=== PATIENT | female | born 1965 | race Caucasian/White ===

== ENCOUNTER 2020-08-28 09:32 | Outpatient (REF) | payer OTHER, SELFPAY ==
--- NOTE | 2020-08-28 10:00 | MM_ITS ---
EXAMINATION: MM SCREENING DIGITAL BREAST TOMOSYNTHESIS, BILATERAL CLINICAL INFORMATION: Screening. Asymptomatic. History ovarian cancer. The lifetime risk of breast cancer based on the Tyrer-Cuzick Model is 4%. COMPARISON: Mammography: 03/24/2018, 09/22/2016 TECHNIQUE: Digital breast tomosynthesis is performed in both the craniocaudal and mediolateral oblique views along with computer-aided detection (CAD). Synthesized 2D images are generated from the tomosynthesis. Additional right MLO view is provided. FINDINGS: There are scattered areas of fibroglandular density (ACR BI-RADS breast composition Category b). Parenchymal pattern is similar to prior exams. There is no developing density or interval mass or architectural abnormality. Again, there is a biopsy clip marker mid 12:00 left breast. Circumscribed macrolobulated nodule again seen central upper inner left breast mid depth with some stable punctate calcification. There is fine fibronodular parenchymal pattern. No interval dominant nodule or significant changes. A port is seen overlying the posterior upper right axilla and there is a dermal lesion marked with skin marker upper left breast. MM/MM tomosynthesis screening BI IMPRESSION: No significant changes from prior studies. ASSESSMENT: BI-RADS 2: Benign RECOMMENDATION: Routine annual mammography screening. This patient's information was entered into a reminder system with a target due date for their next mammogram.
[2020-08-28 10:07] LABS: MANUAL DIFF FLAG NO
[2020-08-28 10:10] LABS: Basophils Absolute Auto 0.1 X10*3/uL (0.0-0.2); Basophils Percent Auto 1.1 % (0-2); Eosinophils Absolute Auto 0.3 X10*3/uL (0.0-0.4); Eosinophils Percent Auto 3.8 % (0-4); Hematocrit 37.5 % (37-47); Imm Gran Abs Auto 0.02 X10*3/uL (0.00-0.03); Imm Gran Pct Auto 0.2 % (0.0-0.4); Lymphocytes Absolute Auto 1.7 X10*3/uL (1.2-4.9); Lymphocytes Percent Auto 20.5 % (20-40); Mean Corpuscular Hemoglobin 30.6 pg (27.0-33.0); Mean Corpuscular Volume 95.7 fL (80-98); Mean Platelet Volume 11.5 fL (9.4-12.3); Monocytes Absolute Auto 0.8 X10*3/uL (0.1-1.2); Monocytes Percent Auto 9.8 % (2-11); Neutrophils Absolute Auto 5.4 X10*3/uL (2.0-8.3); Neutrophils Percent Auto 64.6 % (45-73); Platelet Count 339 X10*3/uL (160-400); Red Blood Count 3.92 X10*6/uL (4.20-5.50); White Blood Count 8.3 X10*3/uL (4.8-10.8)
[2020-08-28 10:41] LABS: Alanine Aminotransferase 14 U/L (0-31); Albumin Level 4.2 g/dL (3.5-5.0); Alkaline Phosphatase 78 U/L (39-117); Anion Gap 13 (12-20); Aspartate Amino Transferase 16 U/L (5-31); Bilirubin Total 0.5 mg/dL (0.0-1.0); Blood Urea Nitrogen 13 mg/dL (9-16); Calcium 9.1 mg/dL (8.4-10.2); Carbon Dioxide 27 mmol/L (22-29); Chloride 108 mmol/L (96-108); Cholesterol 178 mg/dL; Estimated Glomerular Filt Rate > 60; Glucose Random 98 mg/dL (60-115); HDL Cholesterol 54 mg/dL; LDL Cholesterol Calculated 98 mg/dl; Potassium 4.1 mmol/l (3.3-5.1); Sodium 144 mmol/L (135-145); Total Protein 7.3 g/dL (6.5-8.0); Triglycerides 130 mg/dL
== END 2020-08-28 09:33 | disposition home or self-care (01) ==
LOC: HO.MAMMO 09:32
PROVIDERS: PCP Internal Medicine; Visit Provider Internal Medicine
DX: Z00.00 Encounter for general adult medical examination without abnormal findings (principal); F33.42 Major depressive disorder, recurrent, in full remission; Z12.39 Encounter for other screening for malignant neoplasm of breast; Z85.43 Personal history of malignant neoplasm of ovary
CPT/HCPCS: 36415; 77063; 77067; 80053; 80061; 85025

== ENCOUNTER 2022-05-02 08:39 | Outpatient (REF) | payer OTHER, SELFPAY ==
--- NOTE | ~2022-05-02 | MM_ITS ---
EXAMINATION: MM SCREENING DIGITAL BREAST TOMOSYNTHESIS, BILATERAL CLINICAL INFORMATION: Screening. Asymptomatic. The lifetime risk of breast cancer based on the Tyrer-Cuzick Model is 7%. COMPARISON: Mammography: 01/26/2021, 03/24/2018, 09/22/2016 TECHNIQUE: Digital breast tomosynthesis is performed in both the craniocaudal and mediolateral oblique views along with computer-aided detection (CAD). Synthesized 2D images are generated from the tomosynthesis. FINDINGS: There are scattered areas of fibroglandular density (ACR BI-RADS breast composition Category b). Parenchymal pattern is similar to prior studies and there is no developing density or interval architectural abnormality. Left breast again has a smooth mass central breast mid depth similar to prior exams. There is a smaller nodule with overlying biopsy clip marker also noted mid 12:00 left breast. Dermal lesion overlies the posterior upper outer left breast. There are no abnormal calcifications. Portion of a port overlies the posterior right axilla. The axilla are unremarkable. No significant changes. MM/MM tomosynthesis screening BI IMPRESSION: No significant changes from prior studies. ASSESSMENT: BI-RADS 2: Benign RECOMMENDATION: Routine annual mammography screening. This patient's information was entered into a reminder system with a target due date for their next mammogram.
== END 2022-05-02 08:40 | disposition home or self-care (01) ==
LOC: HO.MAMMO 08:39
PROVIDERS: Visit Provider Internal Medicine
DX: Z12.31 Encounter for screening mammogram for malignant neoplasm of breast (principal)
CPT/HCPCS: 77063; 77067

== ENCOUNTER 2022-11-11 09:45 | Outpatient (REF) | payer OTHER, SELFPAY ==
--- NOTE | ~2022-11-11 | XR_ITS ---
EXAMINATION: XR FOOT, RIGHT CLINICAL INFORMATION: Pain of ankle and foot COMPARISON: None available. TECHNIQUE: AP, lateral, and oblique views of the right foot. FINDINGS: No acute fracture or dislocation. Joint spaces are well aligned. Soft tissue swelling is seen throughout the foot, particularly along the plantar aspect. XR/XR foot RT min 3V IMPRESSION: No osseous abnormality. Soft tissue swelling of the foot.
== END 2022-11-11 09:46 | disposition home or self-care (01) ==
LOC: HO.XRAY 09:45
PROVIDERS: PCP Internal Medicine; Visit Provider Internal Medicine
DX: M25.571 Pain in right ankle and joints of right foot (principal)
CPT/HCPCS: 73630

== ENCOUNTER 2023-05-04 08:34 | Outpatient (REF) | payer OTHER, SELFPAY ==
--- NOTE | ~2023-05-04 | MM_ITS ---
EXAMINATION: MM SCREENING DIGITAL BREAST TOMOSYNTHESIS, BILATERAL CLINICAL INFORMATION: Screening. Asymptomatic. COMPARISON: Mammography: 05/02/2022, 08/28/2020, 03/24/2018, 09/22/2016, and dating back to 2013 TECHNIQUE: Digital breast tomosynthesis is performed in both the craniocaudal and mediolateral oblique views along with computer-aided detection (CAD). Synthesized 2D images are generated from the tomosynthesis. FINDINGS: There are scattered areas of fibroglandular density (ACR BI-RADS breast composition Category b). There is a right chest port in place in the right lower axilla. There are bilateral scattered vascular and benign appearing parenchymal calcifications. Stable smooth mass in the central left breast, mid depth, similar to prior exams and benign. Similar nodule with overlying biopsy clip marker also noted mid 12:00 left breast. There are no developing masses, suspicious grouped calcifications, or developing areas of architectural distortion. The parenchymal pattern is unchanged from the prior exams. MM/MM tomosynthesis screening BI IMPRESSION: No mammographic evidence of malignancy. Stable benign findings. ASSESSMENT: BI-RADS BI-RADS 2 - Benign Findings RECOMMENDATION: Routine annual mammography screening. 1 year F/U This examination should not preclude the clinical evaluation of a suspicious palpable abnormality. This patient's information was entered into a reminder system with a target due date for their next mammogram.
== END 2023-05-04 08:35 | disposition home or self-care (01) ==
LOC: HO.MAMMO 08:34
PROVIDERS: PCP Internal Medicine; Visit Provider Internal Medicine
DX: Z12.31 Encounter for screening mammogram for malignant neoplasm of breast (principal)
CPT/HCPCS: 77063; 77067

== ENCOUNTER → 2023-05-04 09:30 | Outpatient (BNV) | payer OTHER, SELFPAY | PROVIDERS: PCP Internal Medicine; Visit Provider Radiology Diagnostic Radiology | DX: Z12.31 Encounter for screening mammogram for malignant neoplasm of breast (principal) | CPT/HCPCS: 77063; 77067 ==

== ENCOUNTER 2024-05-09 08:35 | Outpatient (REF) | payer OTHER, SELFPAY ==
--- NOTE | ~2024-05-09 | MM_ITS ---
EXAMINATION: MM SCREENING DIGITAL BREAST TOMOSYNTHESIS, BILATERAL CLINICAL INFORMATION: Screening. Asymptomatic. COMPARISON: Mammography: Comparison is made with available priors TECHNIQUE: Digital breast mammography with tomosynthesis is performed in both the craniocaudal and mediolateral oblique views along with computer-aided detection (CAD). FINDINGS: There are scattered areas of fibroglandular density (ACR BI-RADS breast composition Category b). Port overlies and obscures the superior posterior portion of the right breast on MLO view. Bilateral scattered circumscribed oval masses which wax and wane consistent with benign fibrocystic changes. Circumscribed oval mass central inner right breast stable from mammogram 2021. Marker clip in the right breast. There are no significant masses, abnormal calcifications, or other abnormalities. MM/MM tomosynthesis screening BI IMPRESSION: No mammographic evidence of malignancy. ASSESSMENT: BI-RADS BI-RADS 2 - Benign Findings RECOMMENDATION: Routine annual mammography screening. 1 year F/U This examination should not preclude the clinical evaluation of a suspicious palpable abnormality. This patient's information was entered into a reminder system with a target due date for their next mammogram. Electronically signed by: Lisa Dowell DO 05/20/2024 09:51 AM EDT
== END 2024-05-09 08:36 | disposition home or self-care (01) ==
LOC: HO.MAMMO 08:35
PROVIDERS: PCP Internal Medicine; Visit Provider Internal Medicine
DX: Z12.31 Encounter for screening mammogram for malignant neoplasm of breast (principal)
CPT/HCPCS: 77063; 77067

== ENCOUNTER → 2024-05-09 09:00 | Outpatient (BNV) | payer OTHER, SELFPAY | PROVIDERS: PCP Internal Medicine; Visit Provider Internal Medicine | DX: Z12.31 Encounter for screening mammogram for malignant neoplasm of breast (principal) | CPT/HCPCS: 77063; 77067 ==

== ENCOUNTER 2025-03-13 08:55 | Outpatient (REF) | payer OTHER, SELFPAY ==
--- OUTSIDE RECORDS SUMMARY | 2025-03-13 09:18 | XMS_ITS | Encounter Summary ---
Author Organization [facility] Address [address] [place] [id number] Care Team Providers Care Corporate Legal Assistant Name Role Phone Unavailable Primary Care Provider Unavailabl e Encounter Details Date Type Department Care Team (Latest Contact Info) Description 06/22/2019 Abstract C CONVERSIONS Dental, Provider, DDS Social History Tobacco Use Types Packs/Day Years Used Date Smoking Tobacco: Never Assessed Comments Unknown Sex and Gender Information Value Date Recorded Sex Assigned at Female 06/02/2022 10:17 AM EDT Legal Sex Female 10:17 AM EDT Gender Identity Female 09/18/2022 2:04 PM EST Sexual Orientation Straight 09/18/2022 2: 04 PM EST documented as of this encounter Plan of Treatment Not on file documented as of this encounter Visit Diagnoses Not on filedocumented in this encounter
--- OUTSIDE RECORDS SUMMARY | 2025-03-13 09:18 | XMS_ITS | Clinical Summary ---
Author Organization [facility] Address [address] [place] [address] Phone Care Team Providers Care Photo Specialist Name Role Phone Daysi Donald MD Primary Care Provider [phone] Allergies No known active allergies Medications Acetaminophen (ACETAMIN PO) Take 975 mg by mouth every 6 (six) hours 3 tablet Active ibuprofen (ADVIL,MOTRIN) 800 MG tablet Take 800 mg by mouth every 8 (eight) hours if needed for mild pain Active magnesium oxide 250 MG tablet Take 250 mg by mouth 1 (one) time each day Active ondansetron (ZOFRAN) 8 MG tablet Take by mouth every 8 (eight) hours if needed for nausea or vomiting Active oxyCODONE-aceta minophen (PERCOCET) 10-325 MG per tablet Take 1 tablet by mouth every 4 (four) hours if needed for moderate pain Active POTASSIUM CHLORIDE PO Take by mouth Acti ve prochlorperazin e (COMPAZINE) 10 MG tablet 01/04/2021 Active Active Problems Problem Noted Date Diagnosed Date Nausea 12/26/2021 Malignant neoplasm of unspecified ovary 12/27/19 22 H/O: ileostomy 12/26/2021 Follow-up status 12/26/2021 Depressive disorder 12/26/2021 Anxiety 12/26/2021 Stage 3a chronic kidney disease 01/07/2021 Hypokalemia 12/28/2020 Acute nontraumatic kidney injury 12/28/2020 Hypomagnesemia 12/28/2020 Immunizations Immunization Administration Dates Next Due Influenza, Unspecified 04/18/2017,05/02/2011 Pneumococcal Polysaccharide 02/12/2011 Social History Tobacco Use Types Packs/Day Years Used Date Smoking Tobacco: Never Assessed Comments Unknown Sex and Gender Information Value Date Recorded Sex Assigned at Not on file Legal Sex Female 9:55 AM EDT Gender Identity Not on file Sexual Orientation Not on file Last Filed Vital Signs Vital Sign Reading Time Taken Comments Blood Pressure - - Pulse - - Temperature - - Respiratory Rate - - Oxygen Saturation - - Inhaled Oxygen Concentration - - Weight 66.2 kg (146 lb) 01/07/2021 12:00 PM EDT Height - - Body Mass Index - - Plan of Treatment Health Maintenance Due Date Last Done Comments Breast Cancer Screening 1967 Hepatitis B Vaccine (1 of 3 - 19+ 3-dose series) 1986 Pneumococcal Vaccine: 50+ Ye ars (2 of 2 - PCV) 02/13/2012 02/12/2011 Colorectal Cancer Screening: Annual FOBT 2016 Colorectal Cancer Screening: Colonoscopy 2016 Colorectal Cancer Screening: Sigmoidoscopy 2016 Influenza Vaccine (#1) 2025 04/18/2017, 2010 Pneumococcal Vaccine: Peds ( 0 to 5 Years) and At-Risk Patients (6 to 49 Years) Discontinued 02/12/2011 Insurance ([id number]) [facility] ([id number]) [place] [phone] Care Teams Photo Specialist Relationship Specialty Start Date End Date Daysi Donald MD [address] [place] [address] PCP - General Internal Medicine 08/03/20
[2025-03-13 09:19] LABS: MANUAL DIFF FLAG NO
[2025-03-13 09:36] LABS: Hematocrit 31.2 % (37.0-47.0); Hemoglobin 10.1 g/dl (12.0-16.0); Imm Gran Abs Auto 0.02 X10*3/uL (0.00-0.03); Imm Gran Pct Auto 0.4 % (0.0-0.4); Lymphocytes Absolute Auto 1.0 X10*3/uL (1.2-4.9); Mean Corpuscular HGB Conc 32.4 g/dl (31.0-35.0); Mean Corpuscular Hemoglobin 29.3 pg (27.0-33.0); Mean Corpuscular Volume 90.4 fL (80.0-98.0); NRBC Abs Auto 0.000 X10*3/uL (0.0-0.012); NRBC Pct Auto 0.0 /100WBC (0.0-0.2); Platelet Count 342 X10*3/uL (160-400); Red Blood Count 3.45 X10*6/uL (4.20-5.50); White Blood Count 4.8 X10*3/uL (4.8-10.8)
[2025-03-13 10:18] LABS: Alanine Aminotransferase 16 U/L (0-31); Albumin Level 3.9 g/dL (3.5-5.0); Alkaline Phosphatase 56 U/L (39-117); Anion Gap 10 (12-20); Aspartate Amino Transferase 20 U/L (5-31); Blood Urea Nitrogen 17 mg/dL (9-16); Calcium 8.5 mg/dL (8.4-10.2); Carbon Dioxide 27 mmol/L (22-29); Chloride 109 mmol/L (96-108); Cholesterol 179 mg/dL (<200); Estimated Glomerular Filt Rate > 60; HDL Cholesterol 36 mg/dL (>40); Potassium 3.7 mmol/L (3.3-5.1); Sodium 142 mmol/L (135-145); Total Protein 6.8 g/dL (6.5-8.0); Triglycerides 174 mg/dL (<150)
== END 2025-03-13 08:56 | disposition home or self-care (01) ==
LOC: HO.LAB 08:55
PROVIDERS: PCP Internal Medicine; Visit Provider Internal Medicine
DX: C56.9 Malignant neoplasm of unspecified ovary (principal); R74.02 Elevation of levels of lactic acid dehydrogenase [LDH]; Z68.33 Body mass index [BMI] 33.0-33.9, adult; Z93.2 Ileostomy status
CPT/HCPCS: 36415; 80053; 80061; 85025

== ENCOUNTER 2025-06-23 11:27 | Outpatient (REF) | payer OTHER, SELFPAY ==
--- NOTE | ~2025-06-23 | MM_ITS ---
EXAMINATION: MM SCREENING DIGITAL BREAST TOMOSYNTHESIS, BILATERAL CLINICAL INFORMATION: Screening. Asymptomatic. COMPARISON: Mammography: Comparison is made with available priors TECHNIQUE: Digital breast mammography with tomosynthesis is performed in both the craniocaudal and mediolateral oblique views along with computer-aided detection (CAD). FINDINGS: There are scattered areas of fibroglandular density. Left: Circumscribed oval mass upper inner breast is 2020 however not significant changed over the past few years. No suspicious calcifications or other abnormal findings. Marker clip. Right: No suspicious calcifications masses or other abnormal findings. Port again seen overlying the posterior superior right breast. MM/MM tomosynthesis screening BI IMPRESSION: Additional imaging is recommended ASSESSMENT: BI-RADS Category 0: Incomplete - Need additional Imaging Evaluation RECOMMENDATION: 1. Additional views of the left breast. 2. Targeted ultrasound if warranted after review of the additional views. 3. Radiology department staff will contact the patient for additional imaging. Additional Imaging required Electronically signed by: Lisa Dowell DO 06/27/2025 09:06 AM [facility] [place]
--- OUTSIDE RECORDS SUMMARY | 2025-06-23 12:18 | XMS_ITS | Data Portability ---
Author Organization [employer] Address [address] [place] [address] Care Team Providers Care Hospital Clerk Name Role Phone HIM CCA OTHER Assessment Encounter Date Assessment Date Assessment LastModified by Organization Details LastModified Time 12/08/2024 12/08/2024 Ms. Phillips is a 59 yo F with Ovarian Cancer who is currently undergoing IV chemo and treatment calling today about ankle swelling. Per patient and medic, c/o bilateral ankle swelling, trouble walking/standing , right foot swelling more than left. No redness or infected looking. c/o pain in both feet 10/10. Right foot feels more n/t at times. No fever/chills/farideh st pain. No recent trauma to the area. No h/o CHF. 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 Is not on AC. Since she just took motrin, will defer toradol. I think it's reasonable to watch and wait. Negative Terry's test - but advised compression, elevation, and icing. Will need US DVT if swelling persists and sx worsen. Risk factors: active cancer. No SOB/CP at this time. Vitals stable. No recent injuries c/f dislocation/fx. Considered albumin or renal dysfunction. But given more sudden onset, less likely. I provided real -time medical direction via phone for this encounter, and was available for additional phone based assistance as needed. I have reviewed and agree with the Assessment and Plan as documented by the Pattern Grader Cutter. We discussed the diagnostic uncertainty of home visits and the risk associated with this. In this case the patient and I felt this to be an acceptable and reasonable amount of risk given the benefit of avoiding an ED visit. The patient given the opportunity to ask questions. Follow up with primary care was recommended, as needed. Advised if develops CP/severe SOB/turning blue/uncontrolle d n/v/d or black/bloody emesis or stool/ AMS/ syncope/ high fever unresponsive to APAP to call 911- verbalized understanding of instruction. [email or web address] Not available 12/08/2024 11:54:09 Plan of Treatment Reminders Order Date Submit Date Provider Last Modified By Organization Details Last Modified Time Details Appointments None record ed. Lab None record ed. Referral None record ed. Procedures None record ed. Surgeries None record ed. Imaging None record ed. Medication Orders None record ed. Patient TargetsNo targets recorded. Patient InstructionsNo instructions recorded. Reason for Referral None Reported. Medical Equipment None Reported. Allergies No known drug allergies Medications Name Sig Start Date Stop Date Status Note LastModified by Organization Details LastModified Time olanzapine 5 mg tablet TAKE 1 TABLET BY MOUTH DAILY AT BEDTIME,INS TR:FOR DAYS 1-3 OF EACH CHEMO CYCLE. active Not Available Not Available No t Available potassium chloride ER 10 mEq tablet,exten ded release TAKE 1 TABLET BY MOUTH TWICE A DAY FOR 1 WEEK HOLD OLANZAPINE WHILE TAKING active Not Available Not Available No t Available prochlorpera zine maleate 10 mg tablet TAKE 1 TABLET BY MOUTH EVERY 6 HOURS NEEDED FOR NAUSEA active Not Available Not Available No t Available lidocaine-pr ilocaine 2.5 %-2.5 % topical cream APPLY TO PORTACATH SITE 30-60MIN PRIOR TO EACH CHEMOTHERAP Y SESSION active Not Available Not Available No t Available magnesium oxide 400 mg (241.3 mg magnesium) tablet TAKE 1 TABLET BY MOUTH TWICE A DAY active Not Available Not Available No t Available ibuprofen 600 mg tablet TAKE 1 TABLET BY MOUTH EVERY 6 HOURS active Not Available Not Available No t Available oxycodone 10 mg tablet TAKE 1 TABLET BY MOUTH TWICE A DAY NEEDED FOR PAIN active Not Available Not Available No t Available diclofenac 1 % topical gel APPLY 2 GRAMS TO THE AFFECTED AREA(S) BY TOPICAL ROUTE 4 TIMES PER DAY active Not Available Not Available No t Available Vitals Date Recorded Respiratory rate Heart rate Oxygen saturation Body temperature Systolic And Diastolic Provider Name and Address Organization Details Last Updated DateTime 5 16 /min 92 /min 96 % 98.3 [degF] 120/70 mm[Hg] Not Available [facility] - production 11:46:07 Social History None recorded. Functional Status None recorded. Mental Status None recorded. Family History Nothing Reported. Medical History No medical history recorded. Gynecological HistoryNo gynecological history recorded. Obstetrics History GPAL:G 0 P 0 0 0 0 Past Encounters Encounter ID Performer Location Encounter Start Date Encounter Closed Date Diagnosis/Indication Diagnosis SNOMED-CT Code Diagnosis ICD10 Code Diagnosis IMO Codes Diagnosis Note [id number] BRINDA BARRAZA MD Main - [address] [address] 12/08/2024 11:40:14 12/08/2024 15:58:57 Swollen ankle region 505771192 M25.471 M25.472 [id number] Health Concerns Section Related Observation LastModified by Organization Detai ls LastModified Time None Recorded Concern Status LastModified by Organization Details LastModified Time None Recorded Advance Directives Directive None Recorded Payers Insurance Date Sequence Insurance Name Policy Number Policy Patel Covered Member ID Patel Member ID Guarantor Name 12/08/2024 1 [facility] - DOS ON OR AFTER 2022 - DUAL ELIGIBLE - JAIL OPTIONS AND ONE CARE (MEDICARE REPLACEMENT/ADV ANTAGE - HMO) Qiana Phillips [id number] Qiana Phillips Notes Date Note Type Note Provider Name and Address Organization Details Recorded Time 12/08/2024 text/html ROS as noted in the [facility] Nurse Triage Notes (Marilee Olmedo - RN): Reason For Request: legs swollen Chief Complaints: Extremity Swelling, Extremity Pain PMH: Cancer PMH Reviewed at 12/08/2024 - 11:03 Allergies Reviewed at 12/08/2024 - 11:03 Pain Assessment: Level 10 out of 10 Comments: 59 y.o female c/o bilateral ankle swelling, trouble walking/standing, right foot swelling more than left. No redness or infected looking. c/o pain in both feet 10/10. Right foot feels more n/t at times. No fever/chills/chest pain. PMH: Cancer, Chemotherapy, IV treatment every Thursday, Ovarian Cancer. I provided information on the mobile health provider response time and advised the patient and/or caregiver to monitor reported signs and symptoms. I discussed the warning signs of when to seek emergency care. .................. .................. .................. .................. .................. .................. .................. ............... Pattern Grader Cutter Note From Chris Matson: Dispatched to the call address for the female pain/swelling in her ankles. Pt states she has had pain and swelling in her right ankle for the last couple of days and this morning her left ankle started hurting. She denies any Hx of CHF, blood thinners or trauma to the area. She advises she took Motrin approx 90 minutes ago. She denies chest pain, diff breathing/sob, n/v/d, fevers or other complaints at this time. Pt was found laying supine in bed, CAOx4, airway open and patent, breathing non labored, able to speak in full sentences, -JVD, -HEENT, skin PWD with good turgor, mucous membranes pink and moist, +CMSx4, -edema, +swelling in right ankle-less so in left ankle, afebrile, abd soft non tender/distended, pupils PERRL, pain Pt was assessed. [facility] consulted.Pt advised that due to her recently taking NSAIDs she was not a good candidate for Ketorolac. Pt advised to rest/elevate/ice her ankle(s) and to follow up with her PCP if it persisted for imaging. Red flags discussed. ALL times are approx. .................. .................. .................. .................. .................. .................. .................. ............... [facility] Consulted: Brinda Barraza .................. .................. .................. .................. .................. .................. .................. ............... Disposition: Fulfilled BRINDA BARRAZA MD [address], [place], [address], LACEY HOWELL 12/08/2024 12:34:33 OBGyn Episode No OBEpisode recorded.
--- OUTSIDE RECORDS SUMMARY | 2025-06-23 12:18 | XMS_ITS | Clinical Summary ---
Author Organization [facility] Address [address] [facility] [address] [place] [phone] Phone Care Team Providers Care Director Personal Name Role Phone Daysi Donald MD Primary Care Provider Rachel Leon MD Unavailable [phone] Allergies No known active allergies Medications oxyCODONE 10 mg TbOr Take 10 mg by mouth. 04/06/2025 Active hydrOXYzine HCL (ATARAX) 10 MG tablet Take 10 mg by mouth 3 (three) times a day. 02/08/2025 Active potassium chloride, bulk, Powd Take by mouth. Active OLANZapine (ZYPREXA) 5 MG tablet 5 mg. 10/14/2024 Active magnesium oxide 250 mg (150 mg elemental) Tab Take 250 mg by mouth. Active prochlorperazin e (COMPAZINE) 10 MG tablet Take 10 mg by mouth every 6 (six) hours as needed. 05/24/2024 Active sertraline (ZOLOFT) 25 MG tablet Take 12.5 mg by mouth daily. Active magnesium oxide (MAG-OX) 400 mg (241.3 mg elemental) tablet Take 2 tablets (800 mg total) by mouth daily. 30 tablet 2 05/11/2025 Active Active Problems Patient Care Coordination No te Formatting of this note migh t be different from the original. Patient has RIJ Port (placed at [facility] in [place] previously) Placement confirmed 03/20/25 via NM PET SCAN - Port a cath tip terminates in right atrium Patient does not have information on when it was placed or power, will try to obtain records for next visit. Problem Noted Date Diagnosed Date Malignant neoplasm of ovary Gout Arthritis Anxiety disorder Encounters Date Type Department Care Team Description 05/11/2025 2:15 PM EDT Office Visit [facility], [facility], [facility] [address] [facility] [place] [address] Liza Garcias MD Malignant neoplasm of ovary, unspecified laterality (Primary Dx) 05/11/2025 1:00 PM EDT - 05/11/2025 11:59 PM EDT Hospital Encounter Department of Radiation Oncology [address] [address] Mayito Bowen MD Discharge Disposition: Home or Self Care 05/11/2025 Orders Only [facility], [facility], [facility] [address] [facility] [address] [place] [address] Min Feliciano MD 04/26/2025 Ancillary Orders DF IMG OUTSIDE IMG [address] [place] [phone] Ani Rodas PA-C 04/26/2025 Ancillary Orders DF IMG OUTSIDE IMG [address] [place] [id number] Ani Rodas PA-C 04/26/2025 Orders Only [facility], [facility] [address] [facility] [place] [address] Min Feliciano MD 04/26/2025 Orders Only [facility], [facility], [facility] [address] [facility], [address] [place] [address] Min Feliciano MD 04/24/2025 1:00 PM EDT Office Visit [facility], [facility] [address] [facility], [address] [place] [address] Min Feliciano MD Malignant neoplasm of ovary, unspecified laterality (Primary Dx) 04/20/2025 Ancillary Orders DF IMG OUTSIDE IMG [address] [place] [address] Min Feliciano MD 04/20/2025 Ancillary Orders DF IMG OUTSIDE IMG [address] [place] [phone] Min Feliciano MD 04/20/2025 Ancillary Orders DF IMG OUTSIDE IMG [address] [place] [phone] Min Feliciano MD 04/20/2025 Ancillary Orders DF IMG OUTSIDE IMG [address] [place] [address] Min Feliciano MD 04/20/2025 Ancillary Orders DF IMG OUTSIDE IMG [address] [place] [id number] Min Feliciano MD 04/20/2025 Ancillary Orders DF IMG OUTSIDE IMG [address] [place] [phone] Min Feliciano MD 04/18/2025 12:05 AM EDT Ancillary Procedure DF IMG OUTSIDE IMG [address] [place] [id number] Ani Rodas PA-C 04/18/2025 Ancillary Procedure DF IMG OUTSIDE IMG [address] [place] [phone] Min Feliciano MD 04/17/2025 2:46 PM EDT - 04/17/2025 11:59 PM EDT Hospital Encounter [facility], [address] [address] Discharge Disposition: Home or Self Care 04/12/2025 Orders Only [facility], [facility], [facility] [address] [place] [address], [address] [place] [address] Min Feliciano MD Gynecologic cancer (Primary Dx) 04/12/2025 Telephone [facility], [facility], [facility] [address] [facility], [address] [place] [address] Mirna Stern, RN Care Coordination 04/12/2025 Patient Outreach [facility], [facility], [facility] [address] [facility], [address] [place] [address] Mirna Stern, RN from Last 3 Months Social History Tobacco Use Types Packs/Day Years Used Date Smoking Tobacco: Never Smokeless Tobacco: Never Tobacco Cessation:Counseling Given: Not Answered Alcohol Use Standard Drinks/Week Comments Never 0 (1 standard drink = 0.6 oz pur e alcohol) Child or Family Care Answer Date Record ed Do you have problems with on e of the following making it difficult for you to work, study, or receive health care? No 04/24/2025 Education Answer Date Recorded Are you interested in help w ith more adult education (for example, completing high school, GED, job training, learning the Martiniquais language, technical skills, or developing parenting skills)? No 04/24/2025 Are you concerned about learning? Not on file 04/24/2025 No 04/24/2025 Yes 04/24/2025 Food Answer Date Recorded Within the past 6 months we worried whether our food would run out before we got money to buy more. Never True 04/24/2025 Within the past 6 months the food we bought just didn't last and we didn't have enough money to get more. Never True Residential Stability Answer Date Recor ded What is your housing situation today? I have sun sing 04/24/2025 How many times have you move d in the past 12 months? Zero (I did not move) 04/24/2025 Paying for Meds Answer Date Recorded Do you have trouble paying for medicines? No 04/24/2025 Paying Utility Bills Answer Date Record ed Do you have trouble paying your heating or elect ricity bill? No 04/24/2025 Transportation Answer Date Recorded Has the lack of transportati on kept you from medical appointments or from getting medications? No 04/24/2025 Digital Access Answer Date Recorded No 04/12/2025 No 04/12/2025 Reliable internet access at home? Not on file 04/12/2025 Device with a working camera? Not on file Comments Unknown Sex and Gender Information Value Date Recorded Sex Assigned at Female 04/11/2025 1:10 PM EDT Legal Sex Female 1:07 PM EDT Gender Identity Female 04/11/2025 1:10 PM EDT Sexual Orientation Straight 04/11/2025 1: 10 PM EDT Last Filed Vital Signs Vital Sign Reading Time Taken Comments Blood Pressure 111/67 05/11/2025 2:28 PM EDT Pulse 94 05/11/2025 2:28 PM EDT Temperature 37.5 C (99.5 F) 05/11/2025 2:27 PM EDT Respiratory Rate 16 05/11/2025 2:25 PM EDT Oxygen Saturation 100% 05/11/2025 2:28 PM EDT Inhaled Oxygen Concentration - - Weight 76.7 kg (169 lb 1.5 oz) 05/11/2025 2:25 P M EDT Height 153.1 cm (5' 0.28 ) 05/11/2025 2:25 PM ED T Body Mass Index 32.72 05/11/2025 2:25 PM EDT Plan of Treatment Health Maintenance Due Date Last Done Comments Adult Td,Tdap Booster 1965 LIPID PANEL 1967 DEPRESSION SCREENING 1979 HEPATITIS C SCREENING 1985 HIV ONE-TIME SCREENING (18-6 5 YEARS) 1985 ZOSTER VACCINES (1 of 2) 1986 PAP SMEAR 1988 SCREENING FOR DIABETES 2002 MAMMOGRAM 2007 PNEUMOCOCCAL VACCINES (50+ years) (2 of 2 - PCV) 02/13/2012 02/12/2011 COLOGUARD 2012 COLONOSCOPY 2012 COLORECTAL CANCER SCREENING 2012 FIT TEST 2012 FOBT 2012 SIGMOIDOSCOPY 2012 VIRTUAL COLONOSCOPY 2012 INFLUENZA VACCINE (#1) 2025 COVID-19 VACCINE (3 - 2024-2 6 season) 2025 09/18/2022, 07/05/2022 RSV VACCINE (1 - 1-dose 75+ series) 2042 SMOKING STATUS SCREENING (On ce After 26 Yrs) Completed 04/12/2025 HEPATITIS A VACCINES Aged Out No long er eligible based on patient's age to complete this topic HIB VACCINES Aged Out No longer eligi ble based on patient's age to complete this topic IPV VACCINES Aged Out No longer eligi ble based on patient's age to complete this topic MENINGOCOCCAL VACCINES (ACWY) Aged Out No longer eligible based on patient's age to complete this topic MENINGOCOCCAL VACCINES (B) Aged Out N o longer eligible based on patient's age to complete this topic Medical Devices Not on file Procedures Procedure Name Priority Date/Time Associated Diagnosis Comments CA-125 Routine 05/11/2025 3:34 PM EDT Malignant neoplasm of both ovaries PTT Routine 05/11/2025 3:34 PM EDT Malignant neoplasm of both ovaries PT-INR Routine 05/11/2025 3:34 PM EDT Malignant neoplasm of both ovaries TYPE AND SCREEN (ABO,RH,ANTIBODY SCREEN) Routine 05/11/2025 3:34 PM EDT Malignant neoplasm of both ovaries MAGNESIUM Routine 05/11/2025 3:34 PM EDT Malignant neoplasm of both ovaries BASIC METABOLIC PANEL (BMP) Routine 05/11/2025 3:34 PM EDT Malignant neoplasm of both ovaries HC BLOOD COUNT COMPLETE AUTO&AUTO DIFRNTL WBC Routine 05/11/2025 3:34 PM EDT Malignant neoplasm of both ovaries MRI PELVIS (BONE) OUTSIDE WITH INTERPRETATION OR CONSULT Routine 04/18/2025 12:05 AM EDT MRI PELVIS (BONE) OUTSIDE (NO INTERPRETATION) Routine 04/18/2025 12:00 AM EDT OUTSIDE IMAGING 04/18/2025 OUTSIDE LAB 04/07/2025 ANATOMIC PATHOLOGY Routine 03/30/2025 12 :00 AM EDT OUTSIDE PATHOLOGY 03/30/2025 from Last 3 Months Results * PTT (05/11/2025 3:34 PM EDT) APTT 25.5 22.7 - 35.9 sec [facility] Blood 05/11/2025 3:34 PM EDT 05/11/2025 3:39 PM EDT us Maytio Bowen MD LAB BLOOD BKR ORDERABLES Final Result Performing Organization Address City/[facility]/ZIP Co de Phone Number [facility] [address] [phone] * PT-INR (05/11/2025 3:34 PM EDT) Pathologist [facility] PT 14.3 12.1 - 14.8 sec [facility] INR 1.1 0.9 - 1.1 [facility] Blood 05/11/2025 3:34 PM EDT 05/11/2025 3:39 PM EDT us Mayito Bowen MD LAB BLOOD BKR ORDERABLES Final Result Performing Organization Address [facility]/ZIP Co de Phone Number [facility] [address] [place] [phone] * (ABNORMAL) CBC and differential (05/11/2025 3:34 PM EDT) WBC 11.63(H) 4.00 - 10.00 K/uL [facility] RBC 3.23(L) 3.90 - 6.00 M/uL [facility] HGB 9.1(L) 11.5 - 16.4 g/dL [facility] HCT 28.5(L) 36.0 - 48.0 % [facility] PLT 421 150 - 450 K/uL [facility] MCV 88.2 80.0 - 100.0 fL [facility] MCH 28.2 27.0 - 32.0 pg [facility] MCHC 31.9(L) 32.0 - 36.0 g/dL [facility] RDW 16.9(H) 11.5 - 14.5 % [facility] MPV 10.5 8.4 - 12.0 fL [facility] NRBC 0.00 0 /100 WBCs [facility] ABSOLUTE NRBC 0.00 0 K/uL [facility] DIFF METHOD Auto [facility] NEUTS 80.4(H) 48.0 - 76.0 % [facility] LYMPHS 11.0(L) 18.0 - 41.0 % [facility] MONOS 6.4 4.0 - 11.0 % [facility] EOS 1.3 0.0 - 5.0 % [facility] BASOS 0.6 0.0 - 1.5 % [facility] % IMMATURE GRANS 0.3 0.0 - 1.0 % [facility] ABSOLUTE NEUTS 9.34(H) 1.92 - 7.60 K/uL [facility] ABSOLUTE LYMPHS 1.28 0.72 - 4.10 K/uL [facility] ABSOLUTE MONOS 0.75 0.16 - 1.10 K/uL [facility] ABSOLUTE EOS 0.15 0.00 - 0.50 K/uL [facility] ABSOLUTE BASOS 0.07 0.00 - 0.15 K/uL [facility] ABS IMMATURE GRANS 0.04 0.00 - 0.10 K/uL [facility] Blood 05/11/2025 3:34 PM EDT 05/11/2025 3:39 PM EDT us Mayito Bowen MD LAB BLOOD BKR ORDERABLES Final Result Performing Organization Address [facility]/ZIP Co de Phone Number [facility] [address] [place] [phone] * Type and Screen (ABO,Rh,Antibody Screen) (05/11/2025 3:34 PM EDT) Expiration Date of Sample 05/14/2025 11:59 PM 05/11/2025 6:28 PM EDT [facility] Resulting Agency [facility] ABO Type O 05/11/2025 6:28 PM EDT [facility] Rh Type Positive 05/11/2025 6:28 PM EDT [facility] Antibody Screen Negative 05/11/2025 6:28 PM EDT [facility] Blood 05/11/2025 3:34 PM EDT 05/11/2025 3:40 PM EDT us Mayito Bowen MD LAB BLOOD BANK TEST ORDERABLES Final Result Performing Organization Address [facility] Co de Phone Number [facility] [address] [place] [phone] * CA-125 (05/11/2025 3:34 PM EDT) CA125 17 6 - 38 U/mL [facility] Comment: CA 125 REFERENCE RANGE: POSTMENOPAUSAL 6-32 U/mL PREMENOPAUSAL 6-46 U/mL Blood 05/11/2025 3:34 PM EDT 05/11/2025 3:39 PM EDT us Mayito Bowen MD LAB BLOOD BKR ORDERABLES Final Result Performing Organization Address City/[facility] Co de Phone Number [facility] [address] [place] [phone] * (ABNORMAL) Magnesium (05/11/2025 3:34 PM EDT) MAGNESIUM 1.0(LL) 1.7 - 2.6 mg/dL [facility] Comment: Critical value: Results called to and read back by: LIZA GARCIAS MD AT 1645 Blood 05/11/2025 3:34 PM EDT 05/11/2025 3:39 PM EDT us Mayito Bowen MD LAB BLOOD BKR ORDERABLES Final Result Performing Organization Address [facility] Co de Phone Number [facility] [address] [place] [phone] * (ABNORMAL) Basic metabolic panel (05/11/2025 3:34 PM EDT) Pathologist [facility] SODIUM 140 136 - 145 mmol/L [facility] CHLORIDE 103 98 - 107 mmol/L [facility] POTASSIUM 3.2(L) 3.4 - 5.1 mmol/L [facility] CO2 23 22 - 31 mmol/L [facility] BUN 18 6 - 23 mg/dL [facility] CREATININE 1.10 0.50 - 1.20 mg/dL [facility] GLUCOSE 162(H) 70 - 100 mg/dL [facility] CALCIUM 9.8 8.8 - 10.7 mg/dL [facility] EGFR 59(L) >59 mL/min/1.7 3m2 [facility] Comment:Estimated glomerular filtration rate calculated using the CKD-EPI refit equation. ANION GAP 14 7 - 17 mmol/L [facility] Blood 05/11/2025 3:34 PM EDT 05/11/2025 3:39 PM EDT us Mayito Bowen MD LAB BLOOD BKR ORDERABLES Final Result Performing Organization Address [facility] Co de Phone Number [facility] [address] [place] [phone] * MRI Pelvis (Bone) Outside With Interpretation Or Consult (04/18/2025 12:05 AM EDT) Other 04/27/2025 10:1 0 AM EDT Impressions [facility] - 04/27/2025 10:27 AM EDT 1. Asymmetric thickening of the left vaginal fornix, corresponding to a site of asymmetric FDG uptake on prior PET, likely represents recurrent malignancy. Narrative [facility] - 04/27/2025 10:27 AM EDT MRI PELVIS (BONE) OUTSIDE WITH INTERPRETATION OR CONSULT Referring clinician's provided indication for this examination in [facility]: MRI Review of the Electronic Medical Record reveals an additional history of: recurrent ovarian cancer TECHNIQUE: Multi-sequence, multi-planar MRI of the pelvis was performed with and without intravenous contrast. COMPARISON: CT ABDOMEN/PELVIS OUTSIDE (NO INTERPRETATION) ; NM PET WHOLE BODY OUTSIDE WITH INTERPRETATION OR CONSULT FINDINGS: Pelvic Organs: There are postsurgical changes of hysterectomy. At the vaginal cuff, there is asymmetric thickening of the left vaginal fornix, which measures 0.8 cm thickness, over a 3.4 cm extent (6:16). This is enhancing on postcontrast imaging (19:113). Bowel: No dilated bowel loops. No ascites in the pelvis. Lymph nodes: No pelvic lymphadenopathy. Vessels: Patent. Bones and Soft Tissues: Ventral abdominal hernia containing nondilated bowel loops, and left lower quadrant parastomal hernia, partially imaged. No focal marrow replacing process. Procedure Note Ana Mullins MD - 04/27/2025 MRI PELVIS (BONE) OUTSIDE WITH INTERPRETATION OR CONSULT Referring clinician's provided indication for this examination in [facility]:MRI Review of the Electronic Medical Record reveals an additional history of:recurrent ovarian cancer TECHNIQUE: Multi-sequence, multi-planar MRI of the pelvis was performedwith and without intravenous contrast. COMPARISON: CT ABDOMEN/PELVIS OUTSIDE (NO INTERPRETATION) ; NMPET WHOLE BODY OUTSIDE WITH INTERPRETATION OR CONSULT FINDINGS: Pelvic Organs: There are postsurgical changes of hysterectomy. At thevaginal cuff, there is asymmetric thickening of the left vaginal fornix,which measures 0.8 cm thickness, over a 3.4 cm extent (6:16). This isenhancing on postcontrast imaging (19:113). Bowel: No dilated bowel loops. No ascites in the pelvis. Lymph nodes: No pelvic lymphadenopathy. Vessels: Patent. Bones and Soft Tissues: Ventral abdominal hernia containing nondilatedbowel loops, and left lower quadrant parastomal hernia, partially imaged.No focal marrow replacing process. IMPRESSION: 1. Asymmetric thickening of the left vaginal fornix, corresponding to asite of asymmetric FDG uptake on prior PET, likely represents recurrentmalignancy. us Ani Rodas PA-C IMG OUTSIDE IMAGING W/ INTERPRETATION Final Result Performing Organization Address City/[facility]/ZIP Co de Phone Number [facility] [address] [address] * Outside Imaging Report Only (04/18/2025) us Scanning Interface Provider IMG XR CHEST Jalyn l Result * MRI Pelvis (Bone) Outside (No Interpretation) (04/18/2025 12:00 AM EDT) Other Narrative [facility] - 04/20/2025 10:36 AM EDT This study is for PACS storage only and not for interpretation. us Min Feliciano MD IMG OUTSIDE IMAGING W/OU T INTERPRETATION Final Result Performing Organization Address [facility] Co de Phone Number [email or web address] * Outside Lab (04/07/2025) us Scanning Interface Provider LAB BLOOD BKR ORDERA BLES Final Result * Outside Pathology (03/30/2025) us Scanning Interface Provider PATHOLOGY ORDERABLES Final Result * Anatomic Pathology (03/30/2025 12:00 AM EDT) Final Diagnosis CONSULT SLIDES FROM [facility], [place], [place] A. VAGINAL APEX MASS, BIOPSY ([id number]; 03/30/25): - METASTATIC HIGH GRADE CARCINOMA, see NOTE. 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 Gastric Biopsy HER2 Criteria (used in [id number] and ToGA Trial) 0 No reactivity in any tumor cell 1+ Tumor cell cluster (5 or more tumor cells) with faint or barely perceptible membranous reactivity, irrespective of tumor cells stained 2+ Tumor cell cluster (5 or more tumor cells) with weak to moderate complete basolateral or lateral membranous activity, irrespective of percentage of tumor cell stained 3+ Tumor cell cluster (5 or more tumor cells) with strong, complete basolateral or lateral membranous activity, irrespective of percentage of tumor cells stained The immunoperoxidase, immunofluorescence and in-situ hybridization tests performed at [facility] were developed and their performance characteristics determined by the immunohistochemistry Laboratories in the Department of Pathology at [facility]. They have not been cleared or approved by the U.S. Food and Drug Administration (FDA). The FDA has determined that such clearance or approval is not necessary. [facility] PATHOLOGY Clinical History none provided [facility] PATHOLOGY Tissue Submitted Consult slides. [facility] PATHOLOGY Gross Description Received from [facility], Department of Pathology,[address] [place] [address], are three (3) slides. Three (3) stained slides are labeled [id number] and sublabeled 08/03 , 08/03 and HER2 which correspond to a vaginal apex mass, biopsy obtained on 03/30/25, according to the accompanying pathology report bearing the patient's name and date of . By his/her signature below, the senior physician certifies that he/she personally conducted a microscopic examination ( gross only exam if so stated) of the described specimen(s) and rendered or confirmed the diagnosis(es) related thereto. [facility] PATHOLOGY Procedure Comments ProcSpecimen Accession - [facility] PATHOLOGY Report Accession No: [id number] Date: 1965 Sex: Female [facility] Department of Pathology [address] [place] [address] CLIA License No.: [id number] [employer] Systems Technician: Dr. Marquis Smith MD, PhD Physician: MIN FELICIANO MD Resident: CHERY Waite Pathologist: Benito Mims M.D., Ph.D. PATHOLOGIC DIAGNOSIS: CONSULT SLIDES FROM [facility] [place], [place] A. VAGINAL APEX MASS, BIOPSY ([id number]; 03/30/25): - METASTATIC HIGH GRADE CARCINOMA, see NOTE. 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 Gastric Biopsy HER2 Criteria (used in NAGA-[id number] and ToGA Trial) 0 No reactivity in any tumor cell 1+ Tumor cell cluster (5 or more tumor cells) with faint or barely perceptible membranous reactivity, irrespective of tumor cells stained 2+ Tumor cell cluster (5 or more tumor cells) with weak to moderate complete basolateral or lateral membranous activity, irrespective of percentage of tumor cell stained 3+ Tumor cell cluster (5 or more tumor cells) with strong, complete basolateral or lateral membranous activity, irrespective of percentage of tumor cells stained The immunoperoxidase, immunofluorescence and in-situ hybridization tests performed at [facility] were developed and their performance characteristics determined by the immunohistochemistry Laboratories in the Department of Pathology at [facility]. They have not been cleared or approved by the U.S. Food and Drug Administration (FDA). The FDA has determined that such clearance or approval is not necessary. CLINICAL DATA: History: none provided TISSUE SUBMITTED: Consult slides. GROSS DESCRIPTION: Received from [facility], Department of Pathology,[address] [place] [address], [place] [address], are three (3) slides. Three (3) stained slides are labeled [id number] and sublabeled 08/03 , 08/03 and HER2 which correspond to a vaginal apex mass, biopsy obtained on 03/30/25, according to the accompanying pathology report bearing the patient's name and date of . By his/her signature below, the senior physician certifies that he/she personally conducted a microscopic examination ( gross only exam if so stated) of the described specimen(s) and rendered or confirmed the diagnosis(es) related thereto. Final Diagnosis by Benito Mims M.D., Ph.D., Electronically signed on April at 11:45:29AM [facility] PATHOLOGY Conversion Type (Other) 03/30/2025 04/17/2025 Min Feliciano MD LAB PATHOLOGY ORDERABLES Edited Result - Final [facility] PATHOLOGY from Last 3 Months Insurance MEDICARE [place] [id number] MEDICARE REPLACEMENT MEDICARE REPLACEMENT MEDICARE REPLACEMENT CAMELIA BENÍTEZ [id number] Care Teams Director Personal Relationship Specialty Start Date End Date Daysi Donald MD [address] [place] [address] [place] [address] PCP - General Internal Medicine 04/11/25 Rachel Leon MD [address] [place] [address] 4B_OB/[place] [address] Obstetrics and Gynecology 04/11/25 Additional Source Comments The information contained in this document represents components of the legal health record. It is not the complete legal health record.[facility]
--- OUTSIDE RECORDS SUMMARY | 2025-06-23 12:18 | XMS_ITS | Encounter Summary ---
Author Organization [email or web address] Address [address] [place] [address] Care Team Providers Care Waste And Batting Waste Chopper Name Role Phone Unavailable Primary Care Provider Unavailabl e Reason for Visit * Reason Onset Date Comments appt 12/22/2023 Encounter Details Date Type Department Care Team (Late st Contact Info) Description 12/22/2023 Telephone [facility] [address] [place], [place] [phone] Bryce Gordon DDS [address] [place], [place] [phone] appt Social History Tobacco Use Types Packs/Day Years Used Date Smoking Tobacco: Never Passive Smoke Exposure: Never Smokeless Tobacco: Never Alcohol Use Standard Drinks/Week Comments Never 0 (1 standard drink = 0.6 oz pur e alcohol) Comments Unknown Sex and Gender Information Value Date Recorded Sex Assigned at Female 06/02/2022 10:17 AM EDT Legal Sex Female 10:17 AM EDT Gender Identity Female 09/18/2022 2:04 PM EST Sexual Orientation Straight 09/18/2022 2: 04 PM EST documented as of this encounter Miscellaneous Notes * Telephone Encounter - Cristela Pro - 12/22/2023 10:38 AM EDT Patient states she couldn't come to her last visit because she could not walk. She has been active requested since 09/2023. She is checking in on status of appt. Please reach out to patient for scheduling DR documented in this encounter Plan of Treatment Not on file documented as of this encounter Visit Diagnoses Not on filedocumented in this encounter
--- OUTSIDE RECORDS SUMMARY | 2025-06-23 12:18 | XMS_ITS | Data Portability ---
Author Organization [place] [facility] [place] [facility], [facility] Address [address] [place] [address] Assessment No assessment recorded. Plan of Treatment Reminders Order Date Submit Date Provider Last Modified By Organization Details Last Modified Time Details Appointments None recorded. Lab None recorded. Referral None recorded. Procedures None recorded. Surgeries None recorded. Imaging XR, knee, 4 or more view - rm 209, right knee xray 2023 024 [email or web address] [facility], [address], [place], [address], 4 16:18:41 Medication Orders Voltaren Arthritis Pain 1 % topical gel 2023 024 [id number], [address] [place], [address], 4 11:14:13 Patient TargetsNo targets recorded. Patient InstructionsNo instructions recorded. Reason for Referral None Reported. Results Created Date Observation Date Name Description Value Unit Range Abnormal Flag Note LastModifiedBy Organization Detail LastModifiedTime 01/26/20 24 01/26/2024 XR, knee, 4 or more view http:/ [email or web address] ?Encry pted=s hAaTro YD8dLq bEUv6g %2BXZw aYqtaq 0bqfl% 2Fg9IQ a4ajBk vP9nXo QUaueC m3YtLR FvZlgJ JJ8mAn HZtai3 6h0253 AC0KuY 36EUaX eUC8mr 84%3D INTERFACE [facility] [address], [place], [address], 01/26/2024 10:54:14 01/26/20 24 01/26/2024 XR, knee, 4 or more view [email or web address] ?Encry pted=s hAaTro YD8dLq bEUv6g %2BXZw aYqtaq 0bqfl% 2Fg9IQ a4ajBk vP9nXo QUaueC m3YtLR FvZlgJ JJ8mAn HZtai3 6k3648 AC0KuY 36EUaX eUC8mr 84%3D INTERFACE [employer] [facility] [address], [place], [address], 01/26/2024 10:54:16 Result Notes Documentation Provider Name and Address Organization Details Recorded Time Xr, Knee, 4 Or More View : [email or web address] Encrypted=fqOeEjaKM4bPesL Uv6g%2AWGtdPvuws1duoj%2Fg 8KCp2usWxiD2bStDWdcxNw6Sn GNYqDaqNYD5xWmNSbbh10l174 2GV1GwE41UAwHbFL3ad21%3D Not Available [facility] 01/26/2024 10:5 4:15 Xr, Knee, 4 Or More View : [email or web address] Encrypted=knAsDcvSJ0xCjsW Uv6g%9SHBaxRyeft5qiut%2Fg 4ZOl5saQlwF3kLyGXnhcXl5Vg JPZcYjyHAJ8qAsKZpow99z915 3DT9PlG56ZPzBbNV4ib08%3D Not Available [facility] 01/26/2024 10:5 4:16 Problems Name Problem SNOMED Code Status Onset Date Resolution Date Notes Provider Name and Address Organization Details Recorded Time Pain of right knee joint 781085400537961 Active 2023 NIESHA velasquez [place] - [facility] 10:39:32 Problem Notes None recorded. Procedures Surgical History Date Name Laterality Status Provider Name and Address Organization Details Recorded Time 5 Knee Kenalog 1cc L/R cancelled Huseyin Winters PA-C [address], [place], [address], [facility] 06/12/2025 07:25:41 5 Knee Kenalog 1cc L/R completed Huseyin Winters PA-C [address], [place], [address], [facility] 03/16/2025 07:57:06 5 Knee Kenalog 1cc L/R completed Huseyin Winters PA-C [address] [facility], [place], [address], [facility] 08/29/2024 07:41:14 4 Sports Knee 4&1 completed Huseyin Winters PA-C [address] [facility], [place], [address], [facility] 05/31/2024 07:53:54 4 Sports Knee 4&1 completed Huseyin Winters PA-C [address] [facility], [place], [address], [facility] 01/26/2024 12:22:44 Imaging Results None recorded. Procedure Notes None recorded. Medical Equipment None Reported. Allergies No known drug allergies Medications Name Sig Start Date Stop Date Status Note LastModified by Organization Details LastModified Time Refresh Tears 0.5 % eye drops PLACE 1 DROP INTO BOTH EYES TWICE A DAY active Not Available Not Available Not Available amoxicillin 500 mg capsule TAKE 1 CAPSULE (500 MG) BY MOUTH EVERY 8 HOURS FOR 10 DAYS active Not Available Not Available No t Available olanzapine 5 mg tablet TAKE 1 TABLET BY MOUTH DAILY AT BEDTIME,INS TR:FOR DAYS 1-3 OF EACH CHEMO CYCLE. active Not Available Not Available No t Available potassium chloride ER 10 mEq tablet,exten ded release TAKE 1 TABLET BY MOUTH TWICE A DAY FOR 5 DAYS active Not Available Not Available No t Available metronidazol e 500 mg tablet TAKE 1 TABLET BY MOUTH EVERY 8 HOURS FOR 3 DAYS. active Not Available Not Available No t Available prochlorpera zine maleate 10 mg tablet TAKE 1 TABLET BY MOUTH EVERY 6 HOURS NEEDED FOR NAUSEA active Not Available Not Available No t Available lidocaine-pr ilocaine 2.5 %-2.5 % topical cream APPLY TO [facility] SITE 30-60MIN PRIOR TO EACH CHEMOTHERAP Y SESSION active Not Available Not Available No t Available acetaminophe n ER 650 mg tablet,exten ded release PLEASE SEE ATTACHED FOR DETAILED DIRECTIONS active Not Available Not Available N ot Available magnesium oxide 400 mg (241.3 mg magnesium) tablet TAKE 2 TABLETS BY MOUTH DAILY. active Not Available Not Available No t Available sertraline 25 mg tablet TAKE 1/2 TABLET BY MOUTH EVERY DAY active Not Available Not Available No t Available ibuprofen 600 mg tablet TAKE 1 TABLET BY MOUTH EVERY 6 HOURS active Not Available Not Available No t Available levofloxacin 500 mg tablet TAKE 1 TABLET BY MOUTH EVERY 24 HOURS FOR 2 DAYS. active Not Available Not Available Not Available hydroxyzine HCl 10 mg tablet TAKE 1 TABLET BY MOUTH THREE TIMES A DAY active Not Available Not Available Not Available nitrofuranto in monohydrate/ macrocrystal s 100 mg capsule TAKE 1 CAPSULE BY MOUTH TWICE A DAY FOR 5 DAYS active Not Available Not Available No t Available chlorhexidin e gluconate 0.12 % mouthwash SWISH AND SPIT OUT 15 ML IN THE MOUTH OR THROAT IF NEEDED FOR WOUND CARE FOR UP TO 14 DAYS active Not Available Not Available No t Available oxycodone 10 mg tablet TAKE 1 TABLET BY MOUTH TWICE A DAY NEEDED FOR PAIN active Not Available Not Available No t Available diclofenac 1 % topical gel APPLY 2 GRAMS TO THE AFFECTED AREA(S) BY TOPICAL ROUTE 4 TIMES PER DAY 2023 active Not Available Not Available Not Avai lable Vitals Date Recorded Body height Provider Name an d Address Organization Details Last Updated DateTime 08/29/2024 154.94 cm HARMEET Chirinos [facility] 08/29/2024 09:35:37 Date Recorded Body height Body mass index (BMI) Body weight Provider Name and Address Organization Details Last Updated DateTime 01/26/2024 154.94 cm 32.1 kg/m2 12892.7 g NIESHA Evans [facility] 01/26/2024 10:38:36 Date Recorded Body height Provider Name an d Address Organization Details Last Updated DateTime 03/16/2025 154.94 cm HARMEET RIVERA [facility] 03/16/2025 09:39:32 Date Recorded Body height Provider Name an d Address Organization Details Last Updated DateTime 05/31/2024 154.94 cm HARMEET RIVERA [facility] 05/31/2024 09:39:57 Social History None recorded. Functional Status None recorded. Mental Status None recorded. Family History Nothing Reported. Medical History Condition Response Allergies/Hayfever N Coronary Artery Disease N Anxiety/Depression N Breathing or lung disorders N Emphysema N Nerve Disorders N Thyroid Problems N COPD N Pacemaker N Anemia N Kidney/Bladder Problems N Vascular Disease N Heart Trouble N Heart Attack (NE) N Gastrointestinal Disease N Cholesterol N Diabetes N Autoimmune disease N Bleeding Disorder N Orthotics N Arthritis Y Seizures/Epilepsy N Blood Clot N AIDS/HIV N Congestive Heart Failure (CHF) N Acid Reflux (GERD) N Cancer Y Stroke N Asthma N Circulation Problems N Peripheral Vascular Disease N Sleep Apnea N Hepatitis N Heart Disease N Rheumatoid Arthritis N Arrhythmia N Pulmonary Embolism N Headaches N Fibromyalgia N Hypertension N Osteoporosis N Gynecological HistoryNo gynecological history recorded. Obstetrics History GPAL:G 0 P 0 0 0 0 Past Encounters Encounter ID Performer Location Encounter Start Date Encounter Closed Date Diagnosis/Indication Diagnosis SNOMED-CT Code Diagnosis ICD10 Code Diagnosis IMO Codes Diagnosis Note [id number] [facility] [address] [place] [address] 01/26/2024 10:00:24 02/22/2024 16:18:41 Pain of right knee joint 4788639002 26970 M25.561 Osteoarthr itis of right knee joint 7361306550 82606 M17.11 [id number] Huseyin Winters PA-C [facility] [address] [place] [address] 05/31/2024 09:19:19 06/24/2024 09:40:39 Pain of right knee joint 1278618034 26255 M25.561 [id number] Huseyin Winters PA-C [facility] [address] [place] [address] 08/29/2024 09:04:20 09/07/2024 11:54:33 Chondromalacia of right patella [id number] 0054923 M22.41 [id number] [facility] [address] [place] [address] 03/16/2025 09:23:15 03/24/2025 10:07:29 Osteoarthritis of right knee joint 9755931757 25292 M17.11 [id number] Health Concerns Section Related Observation LastModified by Organization Detai ls LastModified Time None Recorded Concern Status LastModified by Organization Details LastModified Time None Recorded Advance Directives Directive None Recorded Payers Insurance Date Sequence Insurance Name Policy Number Policy Patel Covered Member ID Patel Member ID Guarantor Name 06/12/2025 1 [facility] - DOS ON OR AFTER 2022 - ONE CARE (MEDICARE REPLACEMENT/ADV ANTAGE - HMO) Qiana Phillips [id number] Qiana Phillips Notes Date Note Type Note Provider Name and Address Organization Details Recorded Time 01/26/2024 text/html I am seeing the patient today under the supervision of Dr. Cooper who was available but who did not see the patient.History:This pleasant woman presents today for a new problem right knee pain. Pain is located about the anterior and anterolateral aspect of the knee. Increased with long-distance walking as well as with stairs. Has been trying Motrin without significant benefit. Forceful injury. Been going on since November.PMH/PSH/MEDS/ALL /FMH/SOC HX/ROS are reviewed in detail per my medical intake sheet.General Exam: Vital signs are as noted belowMental status: Alert and lucid. Normal insight, affect and grooming.BRAZE OPERATOR: Gross motor coordination is intact. No spasticity or clonus noted.Extremities:Calv es are soft non tender, skin intact.Orthopedic Examination:Patient has a negative straight leg raise bilaterally.Right Hip: [ ] Hip exam shows no tenderness to palpation. There is full range of motion throughout all planes without irritability. There is full muscle strength. There is negative straight leg raise. Negative for signs of impingement.Left Hip: [ ] Hip exam shows no tenderness to palpation. There is full range of motion throughout all planes without irritability. There is full muscle strength. There is negative straight leg raise. Negative for signs of impingement.Right Knee: Tenderness to palpation of the medial hamstring area as well as borders of the patella. No effusion, erythema. No laxity. Full range of motion. Full muscle strength.Left Knee: ROM is full, stability intact both anterior, posterior, and varus/valgus stress at both 0 and 30 degrees of flexion. No meniscal tenderness. Negative Jailene's maneuver. No crepitus,no effusion, 5/5 strength.Full strength and sensation distally.X-rays: Radiographs 4 views were obtained standing office of the right knee including a standing AP, Medina view, nonweightbearing lateral views, and merchant view. These radiographs demonstrate Slight spurring off the lateral border of the patella with a small ossicle in this above-noted area.Assessment:Chondr omalacia patella right kneePLAN:Recommended intra-articular cortisone injection. After the risks and benefits in obtaining verbal consent patient's right knee was injected with 1 cc of Kenalog 40 mg/cc or cc of Marcaine and 1%. Tolerated this procedure well. Postinjection precautions reviewed. Follow up with us as needed. I have also recommended a course of physical therapy for for patellofemoral [facility] speech recognition director of catering software was used to create portions of this document. An attempt at proofreading has been made to minimize errors. Please call for corrections. Huseyin Winters PA-C [address] [place] [address] [address], [place], [address], [facility] - [facility] 01/26/2024 12:23:09 05/31/2024 text/html I am seeing the patient today under the supervision of who was available but who did not see the patient. Chief Complaint The patient presents today for recheck of right knee osteoarthritis. Is known to have knee arthritis treated conservatively to this point with 3 months relief of symptoms. Presents today for recheck secondary to increased knee pain. Past Medical/Surgical History Reviewed today, otherwise unchanged per intake sheet. Physical Findings General Appearance: Well developed. In no acute distress. Musculoskeletal System: Knee: General/bilateral: No laxity of the knee. Right Knee: Medial aspect was tender on palpation. No erythema. No warmth. Left Knee: Medial aspect was tender on palpation. No erythema. No warmth. Musculoskeletal Scales: General/bilateral: Mild effusion noted. Neurological: Oriented to time, place, and person. Gait And Stance: Normal. Psychiatric: Mood was appropriate to the affect. Left knee 0-120 degrees of flexion with discomfort. Assessment Osteoarthritis of knee - Plan More than 50% of todays visit was spent on direct patient counseling regarding their knee condition and treatment options both operative with knee arthroplasty and non-operative, including oral medications and injection therapy. After discussion, my clinical decision was to go forth with an intra-articular cortisone injection. After explaining risks and benefits, under meticulous aseptic technique, the knee was injected with, 1cc of Kenalog 40mgs and 4 cc of Marcaine 1/4%. They tolerated the procedures well. Post injection precautions reviewed. Follow up with us in 3 months for further discussion of total knee replacement surgery versus continued conservative treatment. Huseyin Winters PA-C [address] [place] [address] [address], [place], [address], [facility] 05/31/2024 09:51:56 08/29/2024 text/html I am seeing the patient today under the supervision of who was available but who did not see the patient. Chief Complaint The patient presents today for recheck of right knee osteoarthritis. Is known to have knee arthritis treated conservatively to this point with 3 months relief of symptoms. Presents today for recheck secondary to increased knee pain. Past Medical/Surgical History Reviewed today, otherwise unchanged per intake sheet. Physical Findings General Appearance: Well developed. In no acute distress. Musculoskeletal System: Knee: General/bilateral: No laxity of the knee. Right Knee: Medial aspect was tender on palpation. No erythema. No warmth. Left Knee: Medial aspect was tender on palpation. No erythema. No warmth. Musculoskeletal Scales: General/bilateral: Mild effusion noted. Neurological: Oriented to time, place, and person. Gait And Stance: Normal. Psychiatric: Mood was appropriate to the affect. Left knee 0-120 degrees of flexion with discomfort. Assessment Osteoarthritis of knee - Plan More than 50% of todays visit was spent on direct patient counseling regarding their knee condition and treatment options both operative with knee arthroplasty and non-operative, including oral medications and injection therapy. After discussion, my clinical decision was to go forth with an intra-articular cortisone injection. After explaining risks and benefits, under meticulous aseptic technique, the knee was injected with, 1cc of Kenalog 40mgs and 4 cc of Marcaine 1/4%. They tolerated the procedures well. Post injection precautions reviewed. Follow up with us in 3 months for further discussion of total knee replacement surgery versus continued conservative treatment. Huseyin Winters PA-C [address], [place], [address], [place] [facility] 08/29/2024 12:01:12 03/16/2025 text/html I am seeing the patient today under the supervision of who was available but who did not see the patient. Chief Complaint The patient presents today for recheck of right knee osteoarthritis. Is known to have knee arthritis treated conservatively to this point with 3 months relief of symptoms. Presents today for recheck secondary to increased knee pain. Past Medical/Surgical History Reviewed today, otherwise unchanged per intake sheet. Physical Findings General Appearance: Well developed. In no acute distress. Musculoskeletal System: Knee: General/bilateral: No laxity of the knee. Right Knee: Medial aspect was tender on palpation. No erythema. No warmth. Left Knee: Medial aspect was tender on palpation. No erythema. No warmth. Musculoskeletal Scales: General/bilateral: Mild effusion noted. Neurological: Oriented to time, place, and person. Gait And Stance: Normal. Psychiatric: Mood was appropriate to the affect. Left knee 0-120 degrees of flexion with discomfort. Assessment Osteoarthritis of knee - Plan More than 50% of todays visit was spent on direct patient counseling regarding their knee condition and treatment options both operative with knee arthroplasty and non-operative, including oral medications and injection therapy. After discussion, my clinical decision was to go forth with an intra-articular cortisone injection. After explaining risks and benefits, under meticulous aseptic technique, the knee was injected with, 1cc of Kenalog 40mgs and 4 cc of Marcaine 1/4%. They tolerated the procedures well. Post injection precautions reviewed. Follow up with us in 3 months for further discussion of total knee replacement surgery versus continued conservative treatment. Huseyin Winters PA-C [address], [place], [address], [place] [facility] 03/17/2025 07:24:41 OBGyn Episode No OBEpisode recorded.
--- OUTSIDE RECORDS SUMMARY | 2025-06-23 12:18 | XMS_ITS | Clinical Summary ---
Author Organization [employer] Address [address] [facility] 7t [place] [address] Care Team Providers Care Dielectric Press Operator Name Role Phone Unavailable Primary Care Provider Unavailabl e Allergies No known active allergies Medications magnesium oxide (Mag-Ox) 400 MG tablet Take 1 tablet by mouth 2 times daily. 10/20/2022 Active magnesium oxide (Mag-Ox) 250 MG tablet Take 250 mg by mouth. Active sertraline (Zoloft) 25 MG tablet Take by mouth in the morning. Active OLANZapine (ZyPREXA) 5 MG tablet at bedtime. Active oxyCODONE ER (OxyCONTIN) 10 MG 12 hr tablet Do not crush, chew, or split. Active Active Problems Problem Noted Date Diagnosed Date Dental caries 08/25/2023 Immunizations Immunization Administration Dates Next Due Influenza, IIV3, injectable 04/18/2017, 1 Pfizer Covid-19 Vaccine 12+ 09/18/2022 Pneumococcal Polysaccharide PPSV23 02/12/2011 Social History Tobacco Use Types Packs/Day Years Used Date Smoking Tobacco: Never Passive Smoke Exposure: Never Smokeless Tobacco: Never Tobacco Cessation:Counseling Given: No Alcohol Use Standard Drinks/Week Comments Never 0 (1 standard drink = 0.6 oz pur e alcohol) Comments Unknown Sex and Gender Information Value Date Recorded Sex Assigned at Female 06/02/2022 10:17 AM EDT Legal Sex Female 10:17 AM EDT Gender Identity Female 09/18/2022 2:04 PM EST Sexual Orientation Straight 09/18/2022 2: 04 PM EST Last Filed Vital Signs Vital Sign Reading Time Taken Comments Blood Pressure 124/78 01/14/2024 9:20 AM EDT Pulse 70 01/14/2024 9:20 AM EDT Temperature - - Respiratory Rate - - Oxygen Saturation - - Inhaled Oxygen Concentration - - Weight - - Height - - Body Mass Index - - Plan of Treatment Health Maintenance Due Date Last Done Comments CT Colonography 1967 Colonoscopy 1967 Colorectal Cancer Screening 1967 Dental Prophylaxis 1967 Depression Screening 1967 FIT DNA/Cologuard 1967 FIT 1967 FOBT 1967 HIV Screening 1967 SDOH Screening 1967 Sigmoidoscopy 1967 Disability Screening 1967 Alcohol/Substance Use Screening 1979 Hepatitis C Screening 1985 DTaP/Tdap/Td Vaccines (1 - Tdap) 1986 Hepatitis B Vaccines (1 of 3 - 19+ 3-dose series) 1986 Pap Smear 1988 Cervical Cancer Screening 1997 HPV/Cotest 1997 Mammogram 2007 Pneumococcal Vaccine: 50+ Years (2 of 2 - PCV) 2017 02/12/2011 Zoster Vaccines (1 of 2) 2017 Dental Oral Exam 12/22/2019 06/22/2019, 11/03/2013 Dental X-Ray: Bitewings 06/23/2020 06/22/2019, 11/03 Tobacco Screening 01/13/2025 01/14/2024 COVID-19 Vaccine ( - season) 2025 09/18/2022, 07/05/2022 Influenza Vaccine (#1) 2025 04/18/2017, 2010 Dental X-Ray: Full Mouth 08/26/2026 024, 06/22/2019, 03/30/2015, Additional history exists RSV Patients and Patients Aged 60 years or older (1 - 1-dose 75+ series) 2042 HIB Vaccines Aged Out No longer eligi ble based on patient's age to complete this topic HPV Vaccines Aged Out No longer eligi ble based on patient's age to complete this topic Hepatitis A Vaccines Aged Out No long er eligible based on patient's age to complete this topic IPV Vaccines Aged Out No longer eligi ble based on patient's age to complete this topic Meningococcal B Vaccine Aged Out No l onger eligible based on patient's age to complete this topic Meningococcal Vaccine Aged Out No alejandro mary eligible based on patient's age to complete this topic RSV under 20 months Aged Out No longe r eligible based on patient's age to complete this topic Rotavirus Vaccines Aged Out No longer eligible based on patient's age to complete this topic Procedures Procedure Name Priority Date/Time Associated Diagnosis Comments PANORAMIC RADIOGRAPHIC IMAGE Routine 08/25/2023 11:30 AM EST INTRAORAL - COMPLETE SERIES OF RADIOGRAPHIC IMAGES Routine 06/22/2019 12:00 AM EST PERIODIC ORAL EVALUATION - ESTABLISHED PATIENT Routine 06/22/2019 12:00 AM EST from Last 3 Months or Most Recently Relevant to Health Maintenance Insurance [facility] [employer] OPTIONS (O D-SNP) [address] [place] [address] [facility] [address] [place] [address]
--- OUTSIDE RECORDS SUMMARY | 2025-06-23 12:18 | XMS_ITS | Encounter Summary ---
Author Organization [facility] Address [address] [facility] 7t h Floor [place] [id number] Care Team Providers Care Lead Sql Developer Name Role Phone Unavailable Primary Care Provider [...]
--- OUTSIDE RECORDS SUMMARY | 2025-06-23 12:18 | XMS_ITS | Clinical Summary ---
Author Organization [facility] Address [address] [facility] [address] [place] [address] Phone Care Team Providers Care Clerk Entry Level Name Role Phone Daysi Donald MD Primary Care Provider [phone] Allergies No known active allergies Medications Acetaminophen [...] to 49 Years) Discontinued 02/12/2011 Insurance ([id number]) [facility] ([id number]) [place] [id number] Care Teams Clerk Entry Level Relationship Specialty Start Date End Date Daysi Donald MD [address] [place] [address] PCP - General Internal Medicine 08/03/20
== END 2025-06-23 11:28 | disposition home or self-care (01) ==
LOC: HO.MAMMO 11:27
PROVIDERS: PCP Internal Medicine; Visit Provider Internal Medicine
DX: Z12.31 Encounter for screening mammogram for malignant neoplasm of breast (principal)
CPT/HCPCS: 77063; 77067

== ENCOUNTER → 2025-06-23 12:00 | Outpatient (BNV) | payer OTHER, SELFPAY | PROVIDERS: PCP Internal Medicine; Visit Provider Internal Medicine | DX: Z12.31 Encounter for screening mammogram for malignant neoplasm of breast (principal) | CPT/HCPCS: 77063; 77067 ==

== ENCOUNTER 2025-07-21 08:12 | Outpatient (REF) | payer OTHER, SELFPAY ==
--- NOTE | ~2025-07-21 | MM_ITS ---
EXAMINATION: MM DIAGNOSTIC DIGITAL BREAST TOMOSYNTHESIS, LEFT Left Limited ultrasound. CLINICAL INFORMATION: Call back from screening for focal asymmetry in the left breast. COMPARISON: Mammography: Priors on PACS. TECHNIQUE: Digital breast tomosynthesis is performed in both the craniocaudal and mediolateral oblique views along with computer-aided detection (CAD). Synthesized 2D images are generated from the tomosynthesis. FINDINGS: There are scattered areas of fibroglandular density. Left: Circumscribed oval mass persists in the central inner left breast anterior to middle depth. No suspicious calcifications or other abnormal findings. Marker clip. Targeted color Doppler ultrasound left breast demonstrates a hypoechoic oval circumscribed solid mass versus complicated cyst at 10:00 9 cm from the nipple measuring 11 x 5 x 11 mm. This correlates with the mammographic oval mass. MM/MM tomosynthesis added views L IMPRESSION: Solid mass versus complicated cyst in the left breast at 10:00 9 cm from the nipple increased in size from multiple priors. Recommend ultrasound-guided core needle biopsy for confirmation. The findings and recommendations were discussed with the patient the procedure will be scheduled. ASSESSMENT: BI-RADS Category 4: Suspicious RECOMMENDATION: Biopsy recommended Results were provided to the patient at time of visit by the technologist. Electronically signed by: Lisa Dowell DO 07/21/2025 09:55 AM [facility] [place]
--- OUTSIDE RECORDS SUMMARY | 2025-07-21 08:16 | XMS_ITS | Clinical Summary ---
Author Organization [employer] Address [address] [facility] 7t [place] [address] Care Team Providers Care Recreation Professor Name Role Phone Unavailable Primary Care Provider [...] Relevant to Health Maintenance Insurance [facility] HALF-WAY OPTIONS (O D-SNP) [address] [place] [address] [facility] 1 [place] [address]
--- OUTSIDE RECORDS SUMMARY | 2025-07-21 08:16 | XMS_ITS | Clinical Summary ---
Author Organization [facility] Address [address] [facility] [address] [place] [address] Phone Care Team Providers Care Supervisor Partial Denture Department Name Role Phone Daysi Donald MD Primary Care Provider [phone]- [phone] Allergies No known active allergies Medications Acetaminophen [...] to 49 Years) Discontinued 02/12/2011 Insurance ([id number]) [facility] ([id number]) [place] [id number] Care Teams Supervisor Partial Denture Department Relationship Specialty Start Date End Date Daysi Donald MD [address] [place] [address] PCP - General Internal Medicine 08/03/20
--- OUTSIDE RECORDS SUMMARY | 2025-07-21 08:16 | XMS_ITS | Clinical Summary ---
Author Organization [facility] Address [address] [facility] [address] [place] [address] Phone Care Team Providers Care Retail Store Associate Name Role Phone Daysi Donald MD Primary Care Provider Rachel Leon MD Unavailable [phone] Allergies No known active allergies Medications oxyCODONE [...] original. Patient has RIJ Port (placed at [facility] in [place] previously) Placement confirmed 03/20/25 via NM PET [...] [facility] Visit [facility], [facility] [address] [facility], [address] [place] [address] Liza Garcias MD Malignant neoplasm of ovary, unspecified laterality (Primary Dx) 05/11/2025 1:00 PM EDT - 05/11/2025 11:59 PM EDT Hospital Encounter [facility] Radiation Oncology [address] [address] Mayito Bowen MD Discharge Disposition: Home or Self Care 05/11/2025 Orders Only [facility], [facility], [facility] [address] [facility] [address] [place] [address] Min Feliciano MD 04/26/2025 Ancillary Orders [facility] IMG OUTSIDE IMG [address] [place] [address] Ani Rodas PA-C 04/26/2025 Ancillary Orders DF IMG OUTSIDE IMG [address] [place] [address] Ani Rodas PA-C 04/26/2025 Orders Only [facility], [facility], [address], [address] [place] [address] Min Feliciano MD 04/26/2025 Orders Only [facility], [facility], [address], [address] [place] [address] Min Feliciano MD 04/24/2025 1:00 PM EDT Office Visit [facility], [facility], [address], [address] [place] [address] Min Feliciano MD Malignant neoplasm of ovary, unspecified laterality (Primary Dx) from Last 3 Months Social History Tobacco [...] high school, GED, job training, learning the Lithuanian language, technical skills, or developing parenting skills)? [...] your housing situation today? I have sun sal 04/24/2025 How many times have you move [...] PM EDT Malignant neoplasm of both ovaries from Last 3 Months Results * PTT (05/11/2025 3:34 PM EDT) APTT 25.5 22.7 - 35.9 sec [facility] Blood 05/11/2025 3:34 PM EDT 05/11/2025 3:39 PM EDT us Mayito Bowen MD LAB BLOOD BKR ORDERABLES Final Result [facility] [address] [place] [address] * PT-INR (05/11/2025 3:34 PM EDT) PT 14.3 12.1 - 14.8 sec [facility] INR 1.1 0.9 - 1.1 [facility] Blood 05/11/2025 3:34 PM EDT 05/11/2025 3:39 PM EDT us Mayito Bowen MD LAB BLOOD BKR ORDERABLES Final Result [facility] [address] [place] [address] * (ABNORMAL) CBC and differential (05/11/2025 3:34 PM EDT) WBC 11.63(H) 4.00 - 10.00 K/uL [facility] RBC 3.23(L) 3.90 - 6.00 M/uL [facility] HGB 9.1(L) 11.5 - 16.4 g/dL [facility] HCT 28.5(L) 36.0 - 48.0 % [facility] PLT 421 150 - 450 K/uL [facility] MCV 88.2 80.0 - 100.0 fL [facility] MCH 28.2 27.0 - 32.0 pg [facility] MCHC 31.9(L) 32.0 - 36.0 g/dL [facility] RDW 16.9(H) 11.5 - 14.5 % [facility] MPV 10.5 8.4 - 12.0 fL [facility] NRBC 0.00 0 /100 WBCs [facility] ABSOLUTE NRBC 0.00 0 K/uL [facility] DIFF METHOD [employer] [facility] NEUTS 80.4(H) 48.0 - 76.0 % [facility] LYMPHS 11.0(L) 18.0 - 41.0 % [facility] MONOS 6.4 4.0 - 11.0 % [facility] EOS 1.3 0.0 - 5.0 % [facility] BASOS 0.6 0.0 - 1.5 % [facility] % IMMATURE GRANS 0.3 0.0 - 1.0 % [facility] ABSOLUTE NEUTS 9.34(H) 1.92 - 7.60 K/uL [facility] ABSOLUTE LYMPHS 1.28 0.72 - 4.10 K/uL [facility] ABSOLUTE MONOS 0.75 0.16 - 1.10 K/uL [facility] ABSOLUTE EOS 0.15 0.00 - 0.50 K/uL [facility] ABSOLUTE BASOS 0.07 0.00 - 0.15 K/uL [facility] ABS IMMATURE GRANS 0.04 0.00 - 0.10 K/uL [facility] Blood 05/11/2025 3:34 PM EDT 05/11/2025 3:39 PM EDT us Myaito Bowen MD LAB BLOOD BKR ORDERABLES Final Result Performing Organization Address City/State/[facility] Co de Phone Number [facility] [address] [place] [phone] * Type and Screen (ABO,Rh,Antibody Screen) (05/11/2025 3:34 PM EDT) Expiration Date of Sample 05/14/2025 11:59 PM 05/11/2025 6:28 PM EDT [facility] Resulting Agency [facility] ABO Type O 05/11/2025 6:28 PM EDT [facility] Rh Type Positive 05/11/2025 6:28 PM EDT [facility] Antibody Screen Negative 05/11/2025 6:28 PM EDT [facility] Blood 05/11/2025 3:34 PM EDT 05/11/2025 3:40 PM EDT us Mayito Bowen MD LAB BLOOD BANK TEST ORDERABLES Final Result Performing Organization Address [facility]/ZIP Co de Phone Number [facility] [address] [place] [address] * CA-125 (05/11/2025 3:34 PM EDT) CA125 17 6 - 38 U/mL [facility] Comment: CA 125 REFERENCE RANGE: POSTMENOPAUSAL 6-32 U/mL PREMENOPAUSAL 6-46 U/mL Blood 05/11/2025 3:34 PM EDT 05/11/2025 3:39 PM EDT us Mayito Bowen MD LAB BLOOD BKR ORDERABLES Final Result Performing Organization Address [facility] Co de Phone Number [facility] [address] [place] [phone] * (ABNORMAL) Magnesium (05/11/2025 3:34 PM EDT) Pathologist [facility] MAGNESIUM 1.0(LL) 1.7 - 2.6 mg/dL [facility] Comment: Critical value: Results called to and read back by: LIZA GARCIAS MD AT 1645 Blood 05/11/2025 3:34 PM EDT 05/11/2025 3:39 PM EDT us Mayito Bowen MD LAB BLOOD BKR ORDERABLES Final Result Performing Organization Address [facility] Co de Phone Number [facility] [address] [place] [address] * (ABNORMAL) Basic metabolic panel (05/11/2025 3:34 PM EDT) Pathologist [facility] SODIUM 140 136 - 145 mmol/L [facility] CHLORIDE 103 98 - 107 mmol/L [facility] POTASSIUM 3.2(L) 3.4 - 5.1 mmol/L [facility] CO2 23 22 - 31 mmol/L [facility] BUN 18 6 - 23 mg/dL [facility] CREATININE 1.10 0.50 - 1.20 mg/dL [facility] GLUCOSE 162(H) 70 - 100 mg/dL [facility] CALCIUM 9.8 8.8 - 10.7 mg/dL [facility] EGFR 59(L) >59 mL/min/1.7 3m2 [facility] Comment:Estimated glomerular filtration rate calculated using the CKD-EPI refit equation. ANION GAP 14 7 - 17 mmol/L [facility] Blood 05/11/2025 3:34 PM EDT 05/11/2025 3:39 PM EDT us Mayito Bowen MD LAB BLOOD BKR ORDERABLES Final Result [facility] [address] [place] [address] from Last 3 Months Insurance MEDICARE REPLACEMENT [place]TE[place] [id number] MEDICARE REPLACEMENT CARE MEDICARE REPLACEMENT Member Subscriber Plan / Payer (Formerly [facility]01/31/2017-) Name:Qiana Phillips Relation to Subscriber:Self Name:Qiana Phillips Payer ID:[id number] (NAIC) Group ID:[id number] Type:Medicare Address: [address] [place] [address] MEDICARE REPLACEMENT Member Subscriber Plan / Payer (Formerly [facility]01/31/2017-) Name:Qiana Phillips Relation to Subscriber:Self Name:Qiana Phillips Payer ID:[id number] (NAIC) Group ID:[id number] Type:Medicare Address: [address] [place] [address] CARE MEDICARE REPLACEMENT [facility] ONE CARE MEDICARE REPLACEMENT Care Teams Retail Store Associate Relationship Specialty Start Date End Date Daysi Donald MD [address] [place] [address] [place] [address] PCP - General Internal Medicine 04/11/25 Rachel Leon MD [address] [place] [address] [id number] [address] Obstetrics and Gynecology 04/11/25 Additional Source Comments The information contained in this document represents components of the legal health record. It is not the complete legal health record.[facility]
--- OUTSIDE RECORDS SUMMARY | 2025-07-21 08:16 | XMS_ITS | Encounter Summary ---
Author Organization [facility] Address [address] [facility] 7t h Floor [place] [phone] Care Team Providers Care Field Service Manager Name Role Phone Unavailable Primary Care Provider [...]
--- OUTSIDE RECORDS SUMMARY | 2025-07-21 08:16 | XMS_ITS | Encounter Summary ---
Author Organization [employer] Address [address] [facility] 7t [place] [address] Care Team Providers Care Speech Language Assistant Name Role Phone Unavailable Primary Care Provider Unavailabl e Reason for Visit * Reason Onset Date Comments appt 12/22/2023 Encounter Details Date Type Department Care Team (Late st Contact Info) Description 12/22/2023 Telephone [facility] [address] [place], [place] [phone] Bryce Gordon DDS [address] [place], [place] [phone] appt Social History Tobacco Use Types Packs/Day [...]
== END 2025-07-21 08:13 | disposition home or self-care (01) ==
LOC: HO.MAMMO 08:12
PROVIDERS: PCP Internal Medicine; Visit Provider Internal Medicine
DX: N64.89 Other specified disorders of breast (principal); N63.20 Unspecified lump in the left breast, unspecified quadrant
CPT/HCPCS: 76642; 77061; 77065

== ENCOUNTER → 2025-07-21 08:30 | Outpatient (BNV) | payer OTHER, SELFPAY | PROVIDERS: PCP Internal Medicine; Visit Provider Internal Medicine | DX: N63.22 Unspecified lump in the left breast, upper inner quadrant (principal) | CPT/HCPCS: 76642; 77065; G0279 ==